=== PATIENT | female | born 1960 | race Caucasian/White ===

== ENCOUNTER 2024-05-03 11:10 | Outpatient (RCR) | payer MEDICARE, SELFPAY ==
[2024-04-12 15:01] LABS: Basophils % (Auto) 1 % (0-2.5); Eosinophils # (Auto) 0.1 Thou/mm3 (0.0-0.5); Eosinophils % (Auto) 3 % (0-10); Hematocrit 33.9 % (36.0-46.0); Hemoglobin 11.1 g/dL (12.0-16.0); Immature Granulocytes % (Auto) 0 % (0-0); Lymphocytes # (Auto) 2.4 Thou/mm3 (1.0-4.8); Lymphocytes % (Auto) 56 % (10-50); Mean Corpuscular HGB Conc 32.7 g/dl (31.0-37.0); Mean Corpuscular Hemoglobin 26.6 pg (25.0-35.0); Mean Corpuscular Volume 81 fL (80-100); Monocytes # (Auto) 0.7 Thou/mm3 (0.0-0.8); Monocytes % (Auto) 15 % (0-12); Neutrophils # (Auto) 1.1 Thou/mm3 (1.8-7.7); Neutrophils % (Auto) 26 % (37-80); Nucleated Red Blood Cell % 0 /100 WBC (0); Platelet Count 209 Thou/mm3 (140-440); RDW Standard Deviation 51.6 fL (36.4-46.3); Red Blood Count 4.18 Miln/mm3 (4.00-5.20); White Blood Count 4.3 Thou/mm3 (3.6-11.0)
[2024-04-12 15:19] LABS: Alanine Aminotransferase 30 U/L (10-49); Albumin, Serum 4.1 gm/dL (3.4-4.8); Albumin/Globulin Ratio 1.6 (1.2-2.2); Alkaline Phosphatase 237 U/L (46-116); Anion Gap 6 (7-16); Aspartate Amino Transferase 27 U/L (0-34); BUN/Creatinine Ratio 20 Ratio (12-20); Bilirubin,Total 0.4 mg/dL (0.3-1.2); Blood Urea Nitrogen 12 mg/dL (9-23); Calcium 9.8 mg/dL (8.3-10.6); Calcium (Corrected) 9.8 mg/dL (8.5-10.1); Carbon Dioxide 25.2 mMol/L (20.0-31.0); Chloride 106 mMol/L (98-107); Creatinine (Component) 0.6 mg/dL (0.6-1.3); Globulin 2.5 gm/dL (2.3-3.5); Glucose 110 mg/dL (74-106); Osmolality,Calculated 274 (275-295); Potassium 3.9 mMol/L (3.4-5.1); Sodium 137 mMol/L (136-145); Total Protein 6.6 gm/dL (5.7-8.2); eGFR > 60 See Note
[2024-04-12 15:22] LABS: Carcinoembryonic Antigen 2.2 ng/mL (0.0-5.0)
[2024-04-13 09:17] LABS: Basophils % (Auto) 0 % (0-2.5); Eosinophils # (Auto) 0.2 Thou/mm3 (0.0-0.5); Eosinophils % (Auto) 2 % (0-10); Hematocrit 33.4 % (36.0-46.0); Hemoglobin 11.2 g/dL (12.0-16.0); Immature Granulocytes % (Auto) 0 % (0-0); Immature Granulocytes Auto 0.04 Thou/mm3 (0.00-0.00); Lymphocytes # (Auto) 2.4 Thou/mm3 (1.0-4.8); Lymphocytes % (Auto) 24 % (10-50); Mean Corpuscular HGB Conc 33.5 g/dl (31.0-37.0); Mean Corpuscular Hemoglobin 27.5 pg (25.0-35.0); Mean Corpuscular Volume 82 fL (80-100); Monocytes % (Auto) 10 % (0-12); Neutrophils # (Auto) 6.2 Thou/mm3 (1.8-7.7); Neutrophils % (Auto) 63 % (37-80); Nucleated Red Blood Cell % 0 /100 WBC (0); Platelet Count 198 Thou/mm3 (140-440); Red Blood Count 4.08 Miln/mm3 (4.00-5.20); White Blood Count 9.8 Thou/mm3 (3.6-11.0)
[2024-04-26 15:11] LABS: Alanine Aminotransferase 31 U/L (10-49); Albumin, Serum 4.2 gm/dL (3.4-4.8); Albumin/Globulin Ratio 1.6 (1.2-2.2); Alkaline Phosphatase 240 U/L (46-116); Anion Gap 7 (7-16); Aspartate Amino Transferase 39 U/L (0-34); BUN/Creatinine Ratio 18 Ratio (12-20); Bilirubin,Total 0.7 mg/dL (0.3-1.2); Blood Urea Nitrogen 11 mg/dL (9-23); Calcium 9.9 mg/dL (8.3-10.6); Calcium (Corrected) 9.9 mg/dL (8.5-10.1); Carbon Dioxide 23.5 mMol/L (20.0-31.0); Chloride 109 mMol/L (98-107); Creatinine (Component) 0.6 mg/dL (0.6-1.3); Globulin 2.6 gm/dL (2.3-3.5); Glucose 108 mg/dL (74-106); Osmolality,Calculated 277 (275-295); Potassium 3.7 mMol/L (3.4-5.1); Sodium 139 mMol/L (136-145); Total Protein 6.8 gm/dL (5.7-8.2); eGFR > 60 See Note
[2024-04-26 15:12] LABS: Basophils % (Auto) 1 % (0-2.5); Carcinoembryonic Antigen 2.4 ng/mL (0.0-5.0); Eosinophils # (Auto) 0.1 Thou/mm3 (0.0-0.5); Eosinophils % (Auto) 2 % (0-10); Hematocrit 35.6 % (36.0-46.0); Hemoglobin 11.8 g/dL (12.0-16.0); Immature Granulocytes % (Auto) 0 % (0-0); Lymphocytes # (Auto) 2.4 Thou/mm3 (1.0-4.8); Lymphocytes % (Auto) 69 % (10-50); Mean Corpuscular HGB Conc 33.1 g/dl (31.0-37.0); Mean Corpuscular Hemoglobin 27.1 pg (25.0-35.0); Mean Corpuscular Volume 82 fL (80-100); Monocytes # (Auto) 0.6 Thou/mm3 (0.0-0.8); Monocytes % (Auto) 16 % (0-12); Neutrophils # (Auto) 0.4 Thou/mm3 (1.8-7.7); Neutrophils % (Auto) 12 % (37-80); Nucleated Red Blood Cell % 0 /100 WBC (0); Platelet Count 182 Thou/mm3 (140-440); RDW Standard Deviation 54.3 fL (36.4-46.3); Red Blood Count 4.35 Miln/mm3 (4.00-5.20); White Blood Count 3.5 Thou/mm3 (3.6-11.0)
[2024-04-27 09:05] LABS: Basophils # (Auto) 0.1 Thou/mm3 (0.0-0.2); Basophils % (Auto) 1 % (0-2.5); Eosinophils # (Auto) 0.1 Thou/mm3 (0.0-0.5); Eosinophils % (Auto) 2 % (0-10); Hematocrit 37.7 % (36.0-46.0); Hemoglobin 12.5 g/dL (12.0-16.0); Immature Granulocytes % (Auto) 0 % (0-0); Immature Granulocytes Auto 0.01 Thou/mm3 (0.00-0.00); Lymphocytes # (Auto) 3.1 Thou/mm3 (1.0-4.8); Lymphocytes % (Auto) 52 % (10-50); Mean Corpuscular HGB Conc 33.2 g/dl (31.0-37.0); Mean Corpuscular Hemoglobin 27.2 pg (25.0-35.0); Mean Corpuscular Volume 82 fL (80-100); Monocytes # (Auto) 1.2 Thou/mm3 (0.0-0.8); Monocytes % (Auto) 20 % (0-12); Neutrophils # (Auto) 1.5 Thou/mm3 (1.8-7.7); Neutrophils % (Auto) 25 % (37-80); Nucleated Red Blood Cell % 0 /100 WBC (0); Platelet Count 194 Thou/mm3 (140-440); RDW Standard Deviation 54.8 fL (36.4-46.3); Red Blood Count 4.59 Miln/mm3 (4.00-5.20)
== END 2024-05-08 23:59 | disposition home or self-care (01) ==
LOC: SCTC 11:10
PROVIDERS: PCP Internal Medicine; Referring Provider Internal Medicine; Visit Provider Internal Medicine Hematology & Oncology
DX: Z51.11 Encounter for antineoplastic chemotherapy (principal); C24.1 Malignant neoplasm of ampulla of Vater
CPT/HCPCS: 36591; 80053; 82378; 85025; 96366; 96367; 96368; 96372; 96411; 96413; 96415; 96416; 99212; A4216; J0640; J1100; J1453; J1642; J2405; J3490; J7060; J9190; J9263; Q5101; G0463

== ENCOUNTER 2024-08-06 08:59 | Outpatient (RCR) | payer MEDICARE, SELFPAY ==
[2024-07-19 15:55] LABS: Basophils % (Auto) 1 % (0-2.5); Eosinophils # (Auto) 0.2 Thou/mm3 (0.0-0.5); Eosinophils % (Auto) 4 % (0-10); Hematocrit 36.7 % (36.0-46.0); Hemoglobin 12.1 g/dL (12.0-16.0); Immature Granulocytes % (Auto) 0 % (0-0); Immature Granulocytes Auto 0.01 Thou/mm3 (0.00-0.00); Lymphocytes # (Auto) 2.7 Thou/mm3 (1.0-4.8); Lymphocytes % (Auto) 42 % (10-50); Mean Corpuscular Hemoglobin 29.2 pg (25.0-35.0); Mean Corpuscular Volume 89 fL (80-100); Monocytes # (Auto) 0.7 Thou/mm3 (0.0-0.8); Monocytes % (Auto) 11 % (0-12); Neutrophils # (Auto) 2.7 Thou/mm3 (1.8-7.7); Neutrophils % (Auto) 42 % (37-80); Nucleated Red Blood Cell % 0 /100 WBC (0); Platelet Count 259 Thou/mm3 (140-440); RDW Standard Deviation 46.2 fL (36.4-46.3); Red Blood Count 4.14 Miln/mm3 (4.00-5.20); White Blood Count 6.4 Thou/mm3 (3.6-11.0)
[2024-07-19 16:19] LABS: Alanine Aminotransferase 80 U/L (10-49); Albumin/Globulin Ratio 1.5 (1.2-2.2); Alkaline Phosphatase 474 U/L (46-116); Anion Gap 8 (7-16); Aspartate Amino Transferase 84 U/L (0-34); BUN/Creatinine Ratio 23 Ratio (12-20); Bilirubin,Total 0.6 mg/dL (0.3-1.2); Blood Urea Nitrogen 14 mg/dL (9-23); Calcium 9.3 mg/dL (8.3-10.6); Calcium (Corrected) 9.3 mg/dL (8.5-10.1); Carbon Dioxide 24.8 mMol/L (20.0-31.0); Chloride 105 mMol/L (98-107); Creatinine (Component) 0.6 mg/dL (0.6-1.3); Globulin 2.6 gm/dL (2.3-3.5); Glucose 97 mg/dL (74-106); Osmolality,Calculated 276 (275-295); Potassium 3.7 mMol/L (3.4-5.1); Sodium 138 mMol/L (136-145); Total Protein 6.6 gm/dL (5.7-8.2); eGFR > 60 See Note
[2024-07-19 16:21] LABS: Carcinoembryonic Antigen < 0.5 ng/mL (0.0-5.0)
--- NOTE | 2024-07-20 13:23 | CTCFLWUP_ITS ---
Patient: BRITTA JETER : 1960 Page 2 of 2 FOLLOW UP NOTE DATE OF SERVICE: 07/20/2024 NAME: BRITTA JETER ACCOUNT: [id number] : 1960 AGE: 64 INTERVAL HISTORY: Doing well since surgery. 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 12/30/2023 - 01/07/2024: Ms. Jeter was admitted to [facility] for obstructive jaundice. 726 patient had percutaneous transhepatic biliary drain. It further CT scan showed large duodenal/ampullary mass with peripancreatic lymphadenopathy. She was discharged home. She was readmitted to the hospital following day for seizure-like activity and was found to have hyponatremia. She eventually recovered. During the hospital stay Ms. Jeter was seen by Dr. Willson, hepatobiliary surgeon who felt she is unresectable at that time and recommended neoadjuvant chemotherapy. During the hospital stay she also had biliary stent placed. She received 1 cycle of modified FOLFOX chemotherapy on 01/18/2024. She was discharged home and referred to our clinic for further care. 01/03/2024: CT scan of the abdomen and pelvis with and without contrast 01/18/2024: Patient received 1 cycle of modified FOLFOX 6. 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 Centrum Minis Women 50 Plus - 4 mg iron-200 mcg-25 mcg 1 tab Daily 2. cyanocobalamin (vitamin B-12) - 1,000 mcg 1 tab Daily 3. Dulcolax (bisacodyl) - 5 mg 1 Capsule Daily 4. ferrous sulfate - 325 mg (65 mg iron) 1 tab Every other day 5. folic acid - 1 mg 1 tab Daily 6. Keppra - 500 mg 1 tab Every 12 Hours 7. Vitamin D2 - 1,250 mcg (50,000 unit) 1 Capsule Weekly 8. Xanax - 0.25 mg 1 tab Twice a Day Medications Last Reconciled by Filomena Hope MA on 07/20/2024 ALLERGIES: No Known Drug Allergies REVIEW OF SYSTEMS: A complete 14-point review of systems was performed and is negative except as noted in interval history. PHYSICAL EXAMINATION: VITAL SIGNS: Temperature?98.2, B/P?127/81, Oxygen?Saturation?98% Weight?160?lbs (Change?since?07/19/24:?1.4?lbs) PAIN: 0 - No pain ECOG Performance Status: 0 - Asymptomatic and fully active GENERAL APPEARANCE: Appears well, in no apparent distress, appropriately interactive. HEENT: Normocephalic, no temporal wasting, normal conjunctiva, no scleral icterus, normal hearing, lips without lesions, neck normal range of motion. CARDIOVASCULAR: Not assessed. PULMONARY: Normal respiratory effort, no respiratory distress or use of accessory muscles, speaking in full sentences, no tachypnea. EXTREMITIES: No pedal edema or cyanosis. SKIN: Normal skin appearance. NEUROLOGIC: Alert and oriented x4. PSHYCHIATRIC: Appropriate affect, mood normal, behavior normal, intact thought and speech. 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 S/p 1 cycle of FOLFOX chemotherapy in [place] (01/18/2024) and followed by 7 more here continue modified FOLFOX chemotherapy. Patient patient have completed surgery\and all margins were negative\ Patient noted to have transaminitis Will get MRI liver with and without contrast Advised not to take alcohol or Tylenol RTC in 1 week for review of labs and to start chemotherapy Resume chemotherapy Will monitor with a CBC CMP CA 19-9. Ca 19-9 is normal Will order imaging to see response to therapy RTC in 6 weeksMainstay of therapy for this kind of cancer is surgery. Neoadjuvant systemic therapy can be considered, particularly in patients at high risk, with or without subsequent chemoradiation. High-risk features include imaging findings, markedly elevated CA 19-9, markedly elevated CEA, large primary tumors, large regional lymph nodes, excessive weight loss, and extreme pain. There is limited evidence to recommend specific neoadjuvant regimens off-study, and practices vary with regard to the use of chemotherapy and chemoradiation. After neoadjuvant therapy and stent placement, pancreatic protocol CT or MRI is recommended, followed by surgery in case of resectable disease. Unresectable disease should be managed with the same systemic therapy regimens as metastatic disease. All resected ampullary cancers can receive postoperative adjuvant treatment. The initiation of adjuvant systemic therapy is recommended within 12 weeks of surgery if the patient is medically fit. The optimal duration of treatment is 4 to 6 months. The NCCN recommendations for each disease stage are as follows: (1) stage I disease, systemic therapy or observation; (2) stage II disease, systemic therapy with or without chemoradiation or observation; and (3) stage III disease, systemic therapy with or without chemoradiation. After adjuvant therapy, patients should undergo surveillance every 3 to 6 months for 2 years, then every 6 to 12 months for up to 5 years or as clinically indicated. During surveillance, history and physical examination should take place, as should chest CT and CT or MRI of the abdomen and pelvis with contrast. CEA and/or CA 19-9 levels should also be measured. The NCCN-recommended neoadjuvant therapy options for pancreatobiliary/mixed-type ampullary cancer include FOLFIRINOX/modified FOLFIRINOX (mFOLFIRINOX), gemcitabine + cisplatin, gemcitabine + capecitabine, and gemcitabine + albumin- bound paclitaxel. The NCCN-recommended neoadjuvant therapy options for i ntestinal type ampullary cancer include FOLFOXIRI, FOLFOX, and capecitabine + oxaliplatin (CapeOx). All of these regimens can be potentially followed by chemoradiation based on multidisciplinary tumor board recommendation. For pancreatobiliary/mixed type ampullary cancer, the recommendations for FOLFIRINOX/mFOLFIRINOX, gemcitabine + cisplatin, and gemcitabine + albumin-bound paclitaxel are derived from the NCCN Guidelines for Pancreatic Adenocarcinoma and NCCN Guidelines for Biliary Tract Cancers, with the addition of gemcitabine + capecitabine based on panel members? clinical experience. It should be noted that there are no prospective randomized phase III data supporting these recommendations. The available evidence is derived from prospective phase II or randomized phase II studies as well as from retrospective studies. 126? 131 For more information on these studies, see the discussion sections of the NCCN Guidelines for Pancreatic Adenocarcinoma and the NCCN Guidelines for Biliary Tract Cancers (available at NCCN.org). For intestinal type ampullary cancer, all 3 recommendations are derived from the NCCN Guidelines for Colon Cancer and the NCCN Guidelines for Small Bowel Adenocarcinoma. These recommendations are based on high-level evidence, phase III randomized data from the neoadjuvant FOxTROT trial (FOLFOX, CapeOx) in localized colon cancer, 132 data from the TETLIN and TRIBE2 trials (FOLFOXIRI) for metastatic disease, and data from one phase II study with neoadjuvant FOLFOXIRI for localized colon cancer. 133?135 For more information on these studies, see the discussion section of the NCCN Guidelines for Colon Cancer I reviewed the patient's chart and the patient is already on chemotherapy with FOLFOX. I we will proceed with the treatment and try to get full pathology review for her. I will also wait on the [facility] consult for surgery. MRI liver as have transaminitis RETURN TO CLINIC: 1 week to review labs BILLING AND COMPLIANCE: I reviewed external records from providers outside my specialty as summarized above. I spent a total of 50 minutes on this patient?s care on the day of their visit excluding time spent related to any billed procedures. This time includes time spent with the patient as well as time spent documenting in the medical record, reviewing patients records and tests, obtaining history, placing orders, communicating with other healthcare professionals, counseling the patient, family or caregiver, and/or care coordination for the diagnoses above. Electronically Signed by: Srini Sr MD T: 1:21 PM CC: Low?Radhames,? PCP: Low Ricci Referring: Low Ricci This document was completed utilizing speech recognition software. Grammatical errors, random word insertions, pronoun errors, and incomplete sentences are an occasional consequence of this system due to software limitations, ambient noise, and hardware issues. Any formal questions or concerns about the content, text or information contained within the body of this dictation should be directly addressed to the provider for clarification.
[2024-07-27 06:53] LABS: CA 19-9 Antigen* 23 U/mL (<34)
[2024-07-27 14:30] LABS: Basophils % (Auto) 1 % (0-2.5); Eosinophils # (Auto) 0.2 Thou/mm3 (0.0-0.5); Eosinophils % (Auto) 3 % (0-10); Hematocrit 38.7 % (36.0-46.0); Hemoglobin 13.2 g/dL (12.0-16.0); Immature Granulocytes % (Auto) 0 % (0-0); Lymphocytes # (Auto) 2.6 Thou/mm3 (1.0-4.8); Lymphocytes % (Auto) 44 % (10-50); Mean Corpuscular HGB Conc 34.1 g/dl (31.0-37.0); Mean Corpuscular Hemoglobin 29.8 pg (25.0-35.0); Mean Corpuscular Volume 87 fL (80-100); Monocytes # (Auto) 0.6 Thou/mm3 (0.0-0.8); Monocytes % (Auto) 10 % (0-12); Neutrophils # (Auto) 2.6 Thou/mm3 (1.8-7.7); Neutrophils % (Auto) 43 % (37-80); Nucleated Red Blood Cell % 0 /100 WBC (0); Platelet Count 255 Thou/mm3 (140-440); RDW Standard Deviation 42.9 fL (36.4-46.3); Red Blood Count 4.43 Miln/mm3 (4.00-5.20)
[2024-07-27 14:46] LABS: Alanine Aminotransferase 86 U/L (10-49); Albumin, Serum 4.3 gm/dL (3.4-4.8); Albumin/Globulin Ratio 1.6 (1.2-2.2); Alkaline Phosphatase 497 U/L (46-116); Anion Gap 9 (7-16); Aspartate Amino Transferase 96 U/L (0-34); BUN/Creatinine Ratio 18 Ratio (12-20); Bilirubin,Total 0.5 mg/dL (0.3-1.2); Blood Urea Nitrogen 11 mg/dL (9-23); Calcium 9.8 mg/dL (8.3-10.6); Calcium (Corrected) 9.8 mg/dL (8.5-10.1); Carbon Dioxide 25.2 mMol/L (20.0-31.0); Chloride 103 mMol/L (98-107); Creatinine (Component) 0.6 mg/dL (0.6-1.3); Globulin 2.7 gm/dL (2.3-3.5); Glucose 119 mg/dL (74-106); Osmolality,Calculated 274 (275-295); Potassium 4.1 mMol/L (3.4-5.1); Sodium 137 mMol/L (136-145); eGFR > 60 See Note
[2024-07-28 11:03] LABS: Hepatitis A Antibody IgM Non Reactive (Non React); Hepatitis B Core Antibody IgM Non Reactive (Non React); Hepatitis B Surface Antigen Non Reactive (Non React); Hepatitis C Antibody Non Reactive (Non React)
[2024-07-29 10:13] LABS: Alanine Aminotransferase 82 U/L (10-49); Albumin, Serum 4.2 gm/dL (3.4-4.8); Albumin/Globulin Ratio 1.6 (1.2-2.2); Alkaline Phosphatase 473 U/L (46-116); Anion Gap 7 (7-16); Aspartate Amino Transferase 87 U/L (0-34); BUN/Creatinine Ratio 17 Ratio (12-20); Bilirubin,Total 0.6 mg/dL (0.3-1.2); Blood Urea Nitrogen 10 mg/dL (9-23); Calcium 9.8 mg/dL (8.3-10.6); Calcium (Corrected) 9.8 mg/dL (8.5-10.1); Carbon Dioxide 26.8 mMol/L (20.0-31.0); Chloride 104 mMol/L (98-107); Creatinine (Component) 0.6 mg/dL (0.6-1.3); Globulin 2.7 gm/dL (2.3-3.5); Glucose 101 mg/dL (74-106); Osmolality,Calculated 274 (275-295); Potassium 3.9 mMol/L (3.4-5.1); Sodium 138 mMol/L (136-145); Total Protein 6.9 gm/dL (5.7-8.2); eGFR > 60 See Note
[2024-07-29 12:52] LABS: Misc Send Out* See Sep Rpt
[2024-08-02 06:55] LABS: CA 19-9 Antigen* 15 U/mL (<34)
[2024-08-03 14:32] LABS: Basophils % (Auto) 1 % (0-2.5); Eosinophils # (Auto) 0.2 Thou/mm3 (0.0-0.5); Eosinophils % (Auto) 3 % (0-10); Hematocrit 37.6 % (36.0-46.0); Hemoglobin 12.8 g/dL (12.0-16.0); Immature Granulocytes % (Auto) 0 % (0-0); Immature Granulocytes Auto 0.01 Thou/mm3 (0.00-0.00); Lymphocytes # (Auto) 2.7 Thou/mm3 (1.0-4.8); Lymphocytes % (Auto) 42 % (10-50); Mean Corpuscular Hemoglobin 29.6 pg (25.0-35.0); Mean Corpuscular Volume 87 fL (80-100); Monocytes # (Auto) 0.6 Thou/mm3 (0.0-0.8); Monocytes % (Auto) 9 % (0-12); Neutrophils # (Auto) 2.8 Thou/mm3 (1.8-7.7); Neutrophils % (Auto) 45 % (37-80); Nucleated Red Blood Cell % 0 /100 WBC (0); Platelet Count 261 Thou/mm3 (140-440); RDW Standard Deviation 41.9 fL (36.4-46.3); Red Blood Count 4.33 Miln/mm3 (4.00-5.20); White Blood Count 6.3 Thou/mm3 (3.6-11.0)
[2024-08-03 14:49] LABS: Alanine Aminotransferase 60 U/L (10-49); Albumin, Serum 4.4 gm/dL (3.4-4.8); Albumin/Globulin Ratio 1.7 (1.2-2.2); Alkaline Phosphatase 407 U/L (46-116); Anion Gap 7 (7-16); Aspartate Amino Transferase 73 U/L (0-34); BUN/Creatinine Ratio 22 Ratio (12-20); Bilirubin,Total 0.5 mg/dL (0.3-1.2); Blood Urea Nitrogen 13 mg/dL (9-23); Carbon Dioxide 27.8 mMol/L (20.0-31.0); Chloride 105 mMol/L (98-107); Creatinine (Component) 0.6 mg/dL (0.6-1.3); Globulin 2.6 gm/dL (2.3-3.5); Glucose 95 mg/dL (74-106); Osmolality,Calculated 279 (275-295); Potassium 3.8 mMol/L (3.4-5.1); Sodium 140 mMol/L (136-145); eGFR > 60 See Note
== END 2024-08-06 23:59 | disposition home or self-care (01) ==
LOC: SCTC 08:59
PROVIDERS: PCP Internal Medicine; Referring Provider Internal Medicine; Visit Provider Internal Medicine Hematology & Oncology
DX: Z51.11 Encounter for antineoplastic chemotherapy (principal); C24.1 Malignant neoplasm of ampulla of Vater
CPT/HCPCS: 36591; 80053; 80074; 82378; 85025; 86301; 96360; 96366; 96367; 96368; 96411; 96413; 96415; 96416; 99212; A4216; J0640; J1100; J1453; J1642; J2405; J7030; J7050; J9190; J9263; G0463

== ENCOUNTER → 2024-08-12 | Outpatient (CLI) | payer MEDICARE, SELFPAY ==
--- NOTE | 2024-08-12 09:00 | XR_ITS ---
Examination: MRI abdomen with intravenous contrast. MRI abdomen without intravenous contrast. Date and time of exam: August 12, 2024 0913 hours Comparison PET/CT scan 02/26/2024, MRI abdomen December 12, 2023 INDICATIONS: Diagnosis intrahepatic bile duct carcinoma diagnosed in December 2023, cholecystectomy May 2024 Technique: Multiple axial, sagittal and coronal sections of the abdomen obtained. Transverse images, TR 6020, TE 107. T1 weighted transverse images, TR 582, TE 9.5. T2-weighted sagittal images, TR 4000, TE 105. T2-weighted sagittal images, TR 4000, TE 5. Coronal images, TR 4210, TE 107. Axial and coronal images are obtained post 19 cc intravenous injection, gadolinium. Findings: No current extrahepatic biliary tract dilatation No enhancing liver or splenic lesions Signal deficit in distribution of the common hepatic common bile duct which may relate to the patient's biliary stent On this study no pancreatic mass is noted, pancreatic duct is not dilated No peripancreatic edema Spleen is not enlarged No ascites 2 mm 4 mm lateral periaortic lymph nodes which are stable compared to the PET CT scan 02/26/2024 IMPRESSION: No current extrahepatic biliary tract dilatation No interval hepatic metastases Stable subcentimeter periaortic lymph nodes compared to the PET CT scan 02/26/2024 No interval ascites
== END | disposition home or self-care (01) ==
PROVIDERS: PCP Internal Medicine; Referring Provider Internal Medicine Hematology & Oncology; Visit Provider Internal Medicine Hematology & Oncology
DX: C22.1 Intrahepatic bile duct carcinoma (principal)
CPT/HCPCS: 74183; A9579

== ENCOUNTER → 2024-08-13 | Outpatient (CLI) | payer MEDICARE, SELFPAY ==
--- NOTE | 2024-08-13 16:00 | XR_ITS ---
Examination: CT chest with intravenous contrast CT abdomen with intravenous contrast CT pelvis with intravenous contrast 2-D coronal and sagittal reconstructions Time of exam: August 23, 2024 1002 hours COMPARISON: PET CT scan 02/26/2024, MRI abdomen December 12, 2023, CT abdomen pelvis November 19, 2023 INDICATIONS: Diagnosis liver cancer, biliary stent satisfactory position with weakly hypermetabolic pancreatic head and non hypermetabolic 2 to 4 mm periaortic lymph nodes on PET CT scan 02/26/2024, history Whipple surgery April 2023, undergoing chemotherapy CTDI: vol (mGy) : 17.07 DLP: (mGycm): 644 Technique: Multiple axial images of the chest, abdomen and pelvis with intravenous contrast, 3.0 mm slice thickness. Images obtained post intravenous injection Isovue 370 60 cc. 2-D sagittal and coronal reconstructions. Low dose protocols were performed. One or more of the following dose reduction techniques were used; automated exposure control, adjustment of the mA and/or KV according to patient size, use of iterative reconstruction technique. Findings: No thoracic aortic aneurysmal dilatation Mild calcification left main left anterior descending coronary arteries Pulmonary artery segments are not enlarged No paratracheal tracheobronchial or bronchopulmonary adenopathy No pneumonia, pulmonary edema, pleural disease or pulmonary nodules Pneumobilia, no focal liver lesions Absent gallbladder No current biliary stent Edema involving the duodenal bulb and duodenal sweep Surgical clips at the pancreatic head Body and tail of the pancreas are not enlarged small preaortic precaval lymph nodes are stable in appearance compared to PET CT scan August 26, 2023 No bowel obstruction Normal appendix No pelvic mass Contracted urinary bladder Prominent osteopenia with advanced disc narrowing L4-L5 IMPRESSION: No mediastinal lymphadenopathy No pneumonia, pulmonary edema, pleural disease or pulmonary nodules Stable small preaortic precaval lymph nodes compared to PET CT scan August 26, 2023 Active peptic disease duodenum
== END | disposition home or self-care (01) ==
LOC: CCTX 09:32
PROVIDERS: PCP Internal Medicine; Referring Provider Internal Medicine Hematology & Oncology; Visit Provider Internal Medicine Hematology & Oncology
DX: K30 Functional dyspepsia (principal); C22.1 Intrahepatic bile duct carcinoma
CPT/HCPCS: 71260; 74177; A4649; Q9967

== ENCOUNTER → 2024-08-25 | Outpatient (CLI) | payer MEDICARE, SELFPAY ==
--- NOTE | 2024-08-25 08:06 | XR_ITS ---
MRI abdomen, without contrast. MRCP Date and time of exam: August 25, 2024 0832 hours Comparison August 12, 2024 INDICATIONS: Cholecystectomy May 2024 cancer diagnosis of December 2023 Technique: Multiple axial and coronal images of the abdomen have been obtained with the Siemens 1.5T MRI scanner. Images obtained included T1 weighted transverse images, T2-weighted transverse images, T2-weighted transverse images fat-suppressed, T2 weighted haste fat suppressed transverse images, T1 weighted images, in and out of phase images, T2-weighted coronal images, breath hold, T2 weighted haze coronal images as well as T2 weighted coronal thick slab images, MRCP. Findings: Images are degraded by patient motion Absent gallbladder Enlarged common bile duct 7 mm No pancreatic mass Spleen not enlarged Trace free fluid in the abdomen No hydronephrosis IMPRESSION: Images are significantly degraded by patient motion Recommend repeating this study preceded by intravenous IV conscious sedation
== END | disposition home or self-care (01) ==
PROVIDERS: Referring Provider Internal Medicine Hematology & Oncology; Visit Provider Internal Medicine Hematology & Oncology
DX: Z90.49 Acquired absence of other specified parts of digestive tract (principal); C22.1 Intrahepatic bile duct carcinoma
CPT/HCPCS: S8037; 74181

== ENCOUNTER 2024-09-06 14:40 | Outpatient (RCR) | payer MEDICARE, SELFPAY ==
[2024-08-17 16:13] LABS: Basophils % (Auto) 1 % (0-2.5); Eosinophils # (Auto) 0.2 Thou/mm3 (0.0-0.5); Eosinophils % (Auto) 3 % (0-10); Hematocrit 36.7 % (36.0-46.0); Hemoglobin 12.3 g/dL (12.0-16.0); Immature Granulocytes % (Auto) 0 % (0-0); Immature Granulocytes Auto 0.01 Thou/mm3 (0.00-0.00); Lymphocytes # (Auto) 2.2 Thou/mm3 (1.0-4.8); Lymphocytes % (Auto) 51 % (10-50); Mean Corpuscular HGB Conc 33.5 g/dl (31.0-37.0); Mean Corpuscular Hemoglobin 29.4 pg (25.0-35.0); Mean Corpuscular Volume 88 fL (80-100); Monocytes # (Auto) 0.5 Thou/mm3 (0.0-0.8); Monocytes % (Auto) 12 % (0-12); Neutrophils # (Auto) 1.4 Thou/mm3 (1.8-7.7); Neutrophils % (Auto) 33 % (37-80); Nucleated Red Blood Cell % 0 /100 WBC (0); Platelet Count 194 Thou/mm3 (140-440); RDW Standard Deviation 41.7 fL (36.4-46.3); Red Blood Count 4.18 Miln/mm3 (4.00-5.20); White Blood Count 4.4 Thou/mm3 (3.6-11.0)
[2024-08-17 16:29] LABS: Alanine Aminotransferase 48 U/L (10-49); Albumin/Globulin Ratio 1.5 (1.2-2.2); Alkaline Phosphatase 316 U/L (46-116); Anion Gap 6 (7-16); Aspartate Amino Transferase 65 U/L (0-34); BUN/Creatinine Ratio 18 Ratio (12-20); Bilirubin,Total 0.4 mg/dL (0.3-1.2); Blood Urea Nitrogen 11 mg/dL (9-23); Calcium 9.4 mg/dL (8.3-10.6); Calcium (Corrected) 9.4 mg/dL (8.5-10.1); Chloride 106 mMol/L (98-107); Creatinine (Component) 0.6 mg/dL (0.6-1.3); Globulin 2.6 gm/dL (2.3-3.5); Glucose 112 mg/dL (74-106); Osmolality,Calculated 276 (275-295); Potassium 3.7 mMol/L (3.4-5.1); Sodium 138 mMol/L (136-145); Total Protein 6.6 gm/dL (5.7-8.2); eGFR > 60 See Note
[2024-08-17 16:42] LABS: Carcinoembryonic Antigen 0.8 ng/mL (0.0-5.0)
[2024-08-31 15:58] LABS: Basophils # (Auto) 0.1 Thou/mm3 (0.0-0.2); Basophils % (Auto) 1 % (0-2.5); Eosinophils # (Auto) 0.1 Thou/mm3 (0.0-0.5); Eosinophils % (Auto) 2 % (0-10); Hematocrit 38.3 % (36.0-46.0); Hemoglobin 13.2 g/dL (12.0-16.0); Immature Granulocytes % (Auto) 5 % (0-0); Immature Granulocytes Auto 0.25 Thou/mm3 (0.00-0.00); Lymphocytes # (Auto) 2.9 Thou/mm3 (1.0-4.8); Lymphocytes % (Auto) 57 % (10-50); Mean Corpuscular HGB Conc 34.5 g/dl (31.0-37.0); Mean Corpuscular Hemoglobin 29.2 pg (25.0-35.0); Mean Corpuscular Volume 85 fL (80-100); Monocytes % (Auto) 19 % (0-12); Neutrophils # (Auto) 0.8 Thou/mm3 (1.8-7.7); Neutrophils % (Auto) 16 % (37-80); Nucleated Red Blood Cell # 0.02 Thou/mm3 (0.00-0.00); Nucleated Red Blood Cell % 0 /100 WBC (0); Platelet Count 173 Thou/mm3 (140-440); RDW Standard Deviation 41.1 fL (36.4-46.3); Red Blood Count 4.52 Miln/mm3 (4.00-5.20)
[2024-08-31 16:15] LABS: Alanine Aminotransferase 66 U/L (10-49); Albumin, Serum 4.2 gm/dL (3.4-4.8); Albumin/Globulin Ratio 1.6 (1.2-2.2); Alkaline Phosphatase 366 U/L (46-116); Anion Gap 9 (7-16); Aspartate Amino Transferase 83 U/L (0-34); BUN/Creatinine Ratio 19 Ratio (12-20); Bilirubin,Total 0.4 mg/dL (0.3-1.2); Blood Urea Nitrogen 13 mg/dL (9-23); Carbon Dioxide 25.4 mMol/L (20.0-31.0); Chloride 105 mMol/L (98-107); Creatinine (Component) 0.7 mg/dL (0.6-1.3); Globulin 2.7 gm/dL (2.3-3.5); Glucose 106 mg/dL (74-106); Osmolality,Calculated 277 (275-295); Potassium 4.1 mMol/L (3.4-5.1); Sodium 139 mMol/L (136-145); Total Protein 6.9 gm/dL (5.7-8.2); eGFR > 60 See Note
[2024-08-31 16:29] LABS: Carcinoembryonic Antigen 1.5 ng/mL (0.0-5.0)
[2024-09-06 17:31] LABS: Basophils # (Auto) 0.1 Thou/mm3 (0.0-0.2); Basophils % (Auto) 1 % (0-2.5); Eosinophils % (Auto) 0 % (0-10); Hematocrit 37.9 % (36.0-46.0); Hemoglobin 12.8 g/dL (12.0-16.0); Immature Granulocytes % (Auto) 9 % (0-0); Immature Granulocytes Auto 0.94 Thou/mm3 (0.00-0.00); Lymphocytes # (Auto) 3.2 Thou/mm3 (1.0-4.8); Lymphocytes % (Auto) 30 % (10-50); Mean Corpuscular HGB Conc 33.8 g/dl (31.0-37.0); Mean Corpuscular Hemoglobin 29.4 pg (25.0-35.0); Mean Corpuscular Volume 87 fL (80-100); Monocytes # (Auto) 1.9 Thou/mm3 (0.0-0.8); Monocytes % (Auto) 18 % (0-12); Neutrophils # (Auto) 4.5 Thou/mm3 (1.8-7.7); Neutrophils % (Auto) 42 % (37-80); Nucleated Red Blood Cell % 0 /100 WBC (0); Platelet Count 178 Thou/mm3 (140-440); RDW Standard Deviation 45.4 fL (36.4-46.3); Red Blood Count 4.35 Miln/mm3 (4.00-5.20); White Blood Count 10.6 Thou/mm3 (3.6-11.0)
[2024-09-06 17:39] LABS: Alanine Aminotransferase 72 U/L (10-49); Albumin, Serum 3.8 gm/dL (3.4-4.8); Albumin/Globulin Ratio 1.4 (1.2-2.2); Alkaline Phosphatase 489 U/L (46-116); Anion Gap 9 (7-16); Aspartate Amino Transferase 99 U/L (0-34); BUN/Creatinine Ratio 16 Ratio (12-20); Bilirubin,Total 0.4 mg/dL (0.3-1.2); Blood Urea Nitrogen 13 mg/dL (9-23); Calcium (Corrected) 9.2 mg/dL (8.5-10.1); Carbon Dioxide 25.2 mMol/L (20.0-31.0); Chloride 107 mMol/L (98-107); Creatinine (Component) 0.8 mg/dL (0.6-1.3); Globulin 2.7 gm/dL (2.3-3.5); Glucose 101 mg/dL (74-106); Osmolality,Calculated 281 (275-295); Potassium 3.8 mMol/L (3.4-5.1); Sodium 141 mMol/L (136-145); Total Protein 6.5 gm/dL (5.7-8.2); eGFR > 60 See Note
[2024-09-06 22:48] LABS: Path Review Blood Smear Sent to Pathologist
== END 2024-09-06 23:59 | disposition home or self-care (01) ==
LOC: SCTC 14:40
PROVIDERS: PCP Internal Medicine; Referring Provider Internal Medicine; Visit Provider Internal Medicine Hematology & Oncology
DX: Z51.11 Encounter for antineoplastic chemotherapy (principal); C24.1 Malignant neoplasm of ampulla of Vater; R74.01 Elevation of levels of liver transaminase levels
CPT/HCPCS: 36591; 80053; 82378; 85025; 96366; 96367; 96368; 96372; 96411; 96413; 96415; 96416; A4216; J0640; J1100; J1453; J1642; J2405; J7050; J7060; J9190; J9263; Q5101

== ENCOUNTER 2024-10-05 07:56 | Outpatient (RCR) | payer MEDICARE, SELFPAY ==
[2024-09-20 14:49] LABS: Basophils % (Auto) 1 % (0-2.5); Eosinophils # (Auto) 0.1 Thou/mm3 (0.0-0.5); Eosinophils % (Auto) 3 % (0-10); Hematocrit 34.1 % (36.0-46.0); Hemoglobin 11.8 g/dL (12.0-16.0); Immature Granulocytes % (Auto) 1 % (0-0); Immature Granulocytes Auto 0.02 Thou/mm3 (0.00-0.00); Lymphocytes % (Auto) 48 % (10-50); Mean Corpuscular HGB Conc 34.6 g/dl (31.0-37.0); Mean Corpuscular Hemoglobin 29.9 pg (25.0-35.0); Mean Corpuscular Volume 86 fL (80-100); Monocytes # (Auto) 0.7 Thou/mm3 (0.0-0.8); Monocytes % (Auto) 16 % (0-12); Neutrophils # (Auto) 1.3 Thou/mm3 (1.8-7.7); Neutrophils % (Auto) 31 % (37-80); Nucleated Red Blood Cell % 0 /100 WBC (0); Platelet Count 211 Thou/mm3 (140-440); RDW Standard Deviation 48.2 fL (36.4-46.3); Red Blood Count 3.95 Miln/mm3 (4.00-5.20); White Blood Count 4.2 Thou/mm3 (3.6-11.0)
[2024-09-20 15:06] LABS: Alanine Aminotransferase 50 U/L (10-49); Albumin, Serum 4.2 gm/dL (3.4-4.8); Albumin/Globulin Ratio 1.9 (1.2-2.2); Alkaline Phosphatase 384 U/L (46-116); Anion Gap 7 (7-16); Aspartate Amino Transferase 52 U/L (0-34); BUN/Creatinine Ratio 21 Ratio (12-20); Bilirubin,Total 0.6 mg/dL (0.3-1.2); Blood Urea Nitrogen 15 mg/dL (9-23); Calcium 9.1 mg/dL (8.3-10.6); Calcium (Corrected) 9.1 mg/dL (8.5-10.1); Carbon Dioxide 24.1 mMol/L (20.0-31.0); Chloride 109 mMol/L (98-107); Creatinine (Component) 0.7 mg/dL (0.6-1.3); Globulin 2.2 gm/dL (2.3-3.5); Glucose 126 mg/dL (74-106); Osmolality,Calculated 282 (275-295); Potassium 4.2 mMol/L (3.4-5.1); Sodium 140 mMol/L (136-145); Total Protein 6.4 gm/dL (5.7-8.2); eGFR > 60 See Note
[2024-09-21 08:37] LABS: Basophils # (Auto) 0.1 Thou/mm3 (0.0-0.2); Basophils % (Auto) 1 % (0-2.5); Eosinophils # (Auto) 0.2 Thou/mm3 (0.0-0.5); Eosinophils % (Auto) 1 % (0-10); Hematocrit 35.9 % (36.0-46.0); Hemoglobin 12.2 g/dL (12.0-16.0); Immature Granulocytes % (Auto) 1 % (0-0); Immature Granulocytes Auto 0.15 Thou/mm3 (0.00-0.00); Lymphocytes # (Auto) 2.8 Thou/mm3 (1.0-4.8); Lymphocytes % (Auto) 13 % (10-50); Mean Corpuscular Hemoglobin 29.5 pg (25.0-35.0); Mean Corpuscular Volume 87 fL (80-100); Monocytes # (Auto) 1.5 Thou/mm3 (0.0-0.8); Monocytes % (Auto) 7 % (0-12); Neutrophils # (Auto) 16.3 Thou/mm3 (1.8-7.7); Neutrophils % (Auto) 77 % (37-80); Nucleated Red Blood Cell % 0 /100 WBC (0); Platelet Count 234 Thou/mm3 (140-440); RDW Standard Deviation 49.3 fL (36.4-46.3); Red Blood Count 4.14 Miln/mm3 (4.00-5.20); White Blood Count 21.1 Thou/mm3 (3.6-11.0)
[2024-10-04 13:42] LABS: Basophils % (Auto) 1 % (0-2.5); Eosinophils # (Auto) 0.2 Thou/mm3 (0.0-0.5); Eosinophils % (Auto) 3 % (0-10); Hematocrit 37.4 % (36.0-46.0); Hemoglobin 12.9 g/dL (12.0-16.0); Immature Granulocytes % (Auto) 1 % (0-0); Immature Granulocytes Auto 0.06 Thou/mm3 (0.00-0.00); Lymphocytes # (Auto) 2.5 Thou/mm3 (1.0-4.8); Lymphocytes % (Auto) 44 % (10-50); Mean Corpuscular HGB Conc 34.5 g/dl (31.0-37.0); Mean Corpuscular Hemoglobin 30.1 pg (25.0-35.0); Mean Corpuscular Volume 87 fL (80-100); Monocytes % (Auto) 18 % (0-12); Neutrophils # (Auto) 1.9 Thou/mm3 (1.8-7.7); Neutrophils % (Auto) 34 % (37-80); Nucleated Red Blood Cell % 0 /100 WBC (0); Platelet Count 190 Thou/mm3 (140-440); RDW Standard Deviation 49.7 fL (36.4-46.3); Red Blood Count 4.29 Miln/mm3 (4.00-5.20); White Blood Count 5.7 Thou/mm3 (3.6-11.0)
[2024-10-04 14:01] LABS: Alanine Aminotransferase 68 U/L (10-49); Albumin, Serum 4.3 gm/dL (3.4-4.8); Albumin/Globulin Ratio 1.7 (1.2-2.2); Alkaline Phosphatase 427 U/L (46-116); Anion Gap 6 (7-16); Aspartate Amino Transferase 82 U/L (0-34); BUN/Creatinine Ratio 19 Ratio (12-20); Bilirubin,Total 0.4 mg/dL (0.3-1.2); Blood Urea Nitrogen 13 mg/dL (9-23); Calcium 9.3 mg/dL (8.3-10.6); Calcium (Corrected) 9.3 mg/dL (8.5-10.1); Carbon Dioxide 26.4 mMol/L (20.0-31.0); Chloride 104 mMol/L (98-107); Creatinine (Component) 0.7 mg/dL (0.6-1.3); Globulin 2.6 gm/dL (2.3-3.5); Glucose 110 mg/dL (74-106); Osmolality,Calculated 273 (275-295); Potassium 4.1 mMol/L (3.4-5.1); Sodium 136 mMol/L (136-145); Total Protein 6.9 gm/dL (5.7-8.2); eGFR > 60 See Note
[2024-10-04 14:04] LABS: Carcinoembryonic Antigen 1.4 ng/mL (0.0-5.0)
== END 2024-10-06 23:59 | disposition home or self-care (01) ==
LOC: SCTC 07:56
PROVIDERS: Referring Provider Internal Medicine Hematology & Oncology; Visit Provider Internal Medicine Hematology & Oncology
DX: Z51.11 Encounter for antineoplastic chemotherapy (principal); C24.1 Malignant neoplasm of ampulla of Vater; R74.01 Elevation of levels of liver transaminase levels
CPT/HCPCS: 36591; 80053; 82378; 85025; 96367; 96368; 96372; 96375; 96413; 96415; 96416; A4216; J0640; J1100; J1453; J1642; J2405; J7050; J7060; J9190; J9263; Q5101

== ENCOUNTER 2024-11-03 13:23 | Outpatient (RCR) | payer MEDICARE, SELFPAY ==
[2024-11-02 10:21] LABS: Basophils # (Auto) 0.1 Thou/mm3 (0.0-0.2); Basophils % (Auto) 1 % (0-2.5); Eosinophils # (Auto) 0.1 Thou/mm3 (0.0-0.5); Eosinophils % (Auto) 2 % (0-10); Hematocrit 36.3 % (36.0-46.0); Hemoglobin 12.6 g/dL (12.0-16.0); Immature Granulocytes % (Auto) 0 % (0-0); Immature Granulocytes Auto 0.02 Thou/mm3 (0.00-0.00); Lymphocytes # (Auto) 2.2 Thou/mm3 (1.0-4.8); Lymphocytes % (Auto) 36 % (10-50); Mean Corpuscular HGB Conc 34.7 g/dl (31.0-37.0); Mean Corpuscular Hemoglobin 30.4 pg (25.0-35.0); Mean Corpuscular Volume 88 fL (80-100); Monocytes # (Auto) 0.8 Thou/mm3 (0.0-0.8); Monocytes % (Auto) 13 % (0-12); Neutrophils # (Auto) 2.9 Thou/mm3 (1.8-7.7); Neutrophils % (Auto) 48 % (37-80); Nucleated Red Blood Cell % 0 /100 WBC (0); Platelet Count 208 Thou/mm3 (140-440); RDW Standard Deviation 48.2 fL (36.4-46.3); Red Blood Count 4.14 Miln/mm3 (4.00-5.20); White Blood Count 6.1 Thou/mm3 (3.6-11.0)
[2024-11-02 10:49] LABS: Alanine Aminotransferase 61 U/L (10-49); Albumin, Serum 4.1 gm/dL (3.4-4.8); Albumin/Globulin Ratio 1.8 (1.2-2.2); Alkaline Phosphatase 407 U/L (46-116); Anion Gap 9 (7-16); Aspartate Amino Transferase 72 U/L (0-34); BUN/Creatinine Ratio 20 Ratio (12-20); Bilirubin,Total 0.4 mg/dL (0.3-1.2); Blood Urea Nitrogen 12 mg/dL (9-23); Calcium 8.7 mg/dL (8.3-10.6); Calcium (Corrected) 8.7 mg/dL (8.5-10.1); Carbon Dioxide 25.1 mMol/L (20.0-31.0); Chloride 107 mMol/L (98-107); Creatinine (Component) 0.6 mg/dL (0.6-1.3); Globulin 2.3 gm/dL (2.3-3.5); Glucose 98 mg/dL (74-106); Osmolality,Calculated 280 (275-295); Potassium 4.1 mMol/L (3.4-5.1); Sodium 141 mMol/L (136-145); Total Protein 6.4 gm/dL (5.7-8.2); eGFR > 60 See Note
[2024-11-02 10:53] LABS: Carcinoembryonic Antigen 1.1 ng/mL (0.0-5.0)
--- NOTE | 2024-11-07 20:15 | CTCFLWUP_ITS ---
Patient: BRITTA JETER : 1960 Page 5 of 6 FOLLOW UP NOTE DATE OF SERVICE: 11/03/2024 NAME: BRITTA JETER ACCOUNT: [id number] : 1960 AGE: 64 INTERVAL HISTORY: Subjective: Chief Complaint Follow-up for intrahepatic bile duct carcinoma, anxiety about test results History of Present Illness Britta Jeter, a known patient with intrahepatic bile duct carcinoma and invasive adenocarcinoma of the ampulla of Vater, presents for follow-up. The patient reports feeling good overall but expresses anxiety about her condition and test results. Ms. Jeter underwent a Whipple Procedure following her diagnosis, with negative margins. She completed 6 months of adjuvant therapy with FOLFOX, receiving her first cycle in January 2024. The patient is concerned about her liver enzymes, which she reports are still high but trending down. She is ple ased to share that her cancer markers have decreased significantly, stating It went to zero. It's negative now. The patient denies any specific physical symptoms or complaints at this time. She mentions feeling anxious but is hopeful for positive news regarding her condition. Ms. Jeter expresses a desire for reassurance about her health status and is eager to share any good news with her daughter. Medications and Supplements - FOLFOX - Used for treatment of intrahepatic bile duct carcinoma - First cycle in January 2024 - Completed 6 months of treatment Review of Systems Psychiatric: Positive for anxiety. 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 She underwent a Whipple procedure with negative margins. Following surgery, she received 6 months of adjuvant therapy with FOLFOX, starting in January 2024. Initial post-surgery N a[place] testing was positive but has now turned negative. Recent CT scan was negative, while MRI was inconclusive due to motion artifact. Liver enzymes remain elevated but are trending downward. The patient reports feeling good overall. 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 12/30/2023 - 01/07/2024: Ms. Jeter was admitted to [facility] for obstructive jaundice. 726 patient had percutaneous transhepatic biliary drain. It further CT scan showed large duodenal/ampullary mass with peripancreatic lymphadenopathy. She was discharged home. She was readmitted to the hospital following day for seizure-like activity and was found to have hyponatremia. She eventually recovered. During the hospital stay Ms. Jeter was seen by Dr. Willson, hepatobiliary surgeon who felt she is unresectable at that time and recommended neoadjuvant chemotherapy. During the hospital stay she also had biliary stent placed. She received 1 cycle of modified FOLFOX chemotherapy on 01/18/2024. She was discharged home and referred to our clinic for further care. 01/03/2024: CT scan of the abdomen and pelvis with and without contrast 01/18/2024: Patient received 1 cycle of modified FOLFOX 6. 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 Vitamin D2 - 1,250 mcg (50,000 unit) 1 Capsule Weekly Medications Last Reconciled by Sarah Lopez MA on 11/03/2024 ALLERGIES: No Known Drug Allergies REVIEW OF SYSTEMS: A complete 14-point review of systems was performed and is negative except as noted in interval history. PHYSICAL EXAMINATION: VITAL SIGNS: Temperature?99, B/P?154/84, Oxygen?Saturation?98% Weight?157?lbs (Change?since?11/02/24:?-2.8?lbs) PAIN: 0 - No pain ECOG Performance Status: 0 - Asymptomatic and fully active GENERAL APPEARANCE: Appears well, in no apparent distress, appropriately interactive. HEENT: Normocephalic, no temporal wasting, normal conjunctiva, no scleral icterus, normal hearing, lips without lesions, neck normal range of motion. CARDIOVASCULAR: Not assessed. PULMONARY: Normal respiratory effort, no respiratory distress or use of accessory muscles, speaking in full sentences, no tachypnea. EXTREMITIES: No pedal edema or cyanosis. SKIN: Normal skin appearance. NEUROLOGIC: Alert and oriented x4. PSHYCHIATRIC: Appropriate affect, mood normal, behavior normal, intact thought and speech. LABORATORY DATA: I have personally reviewed and interpreted each of the patient?s relevant lab tests, abnormal findings are below: Date 10/04/24 11/02/24 ??WHITE?BLOOD?COUNT?(Thou/mm3) ? 6.1 ??RED?BLOOD?COUNT?(Miln/mm3) ? 4.14 ??HEMOGLOBIN?(gm/dl) ? 12.6 ??HEMATOCRIT?(%) ? 36.3 ??PLATELET?COUNT?(Thou/mm3) ? 208 ??NEUTROPHILS?%,?AUTO?(%) ? 48 ??LYMPH?%,?AUTO?(%) ? 36 ??NEUTROPHILS,?AUTO?(Thou/mm3) ? 2.9 ??GLUCOSE,RANDOM?(mg/dL) 110?H 98 ??BLOOD?UREA?NITROGEN?(mg/dL) 13 12 ??CREATININE?(mg/dL) 0.70 0.60 ??SODIUM?(mmol/L) 136 141 ??POTASSIUM?(mmol/L) 4.1 4.1 ??CHLORIDE?(mmol/L) 104 107 ??CrCl?(CandG)?(ml/min) 72.83 85.03 ??AST/SGOT?(Unit/L) 82?H 72?H ??ALT/SGPT?(Unit/L) 68?H 61?H ??ALKALINE?PHOSPHATASE?(Unit/L) 427?H 407?H ??BILIRUBIN,?TOTAL?(mg/dL) 0.4 0.4 ??PROTEIN?TOTAL?(gm/dl) 6.9 6.4 ??ALBUMIN,?SERUM?(gm/dl) 4.3 4.1 ??GLOBULIN?(gm/dl) 2.6 2.3 ??ALBUMIN/GLOBULIN?RATIO 1.7 1.8 ??CALCIUM,?SERUM?(mg/dL) 9.3 8.7 ??CALCIUM?SERUM?(CORRECTED)?(mg/dL) 9.3 8.7 ??CEA?(O*)?(ng/ml) ? 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 During surveillance, history and physical examination should take place, as should chest CT and CT or MRI of the abdomen and pelvis with contrast. CEA and/or CA 19-9 levels should also be measured. The NCCN-recommended option at the time of recurrence will be pancreatobiliary/mixed-type ampullary cancer include FOLFIRINOX/modified FOLFIRINOX (mFOLFIRINOX), gemcitabine + cisplatin, gemcitabine + capecitabine, and gemcitabine + albumin-bound paclitaxel. ORDERS: Order # Description [id number] CT Scan + With W/O Contrast + Chest + Abdomen and Pelvis [id number] Comprehensive Metabolic Panel - 12 + CBC with Auto Diff + CEA [id number] Follow Up 3 Months [id number] CA 19-9 RETURN TO CLINIC: 2 months BILLING AND COMPLIANCE: I reviewed external records from providers outside my specialty as summarized above. I spent a total of 50 minutes on this patient?s care on the day of their visit excluding time spent related to any billed procedures. This time includes time spent with the patient as well as time spent documenting in the medical record, reviewing patients records and tests, obtaining history, placing orders, communicating with other healthcare professionals, counseling the patient, family or caregiver, and/or care coordination for the diagnoses above. Electronically Signed by: {Object.Sanct_ID*PnP.NameFL@M}, {Object.Sanct_ID*PnP.Suffix@U} D: {Object.Sanct_Date} T: {Object.Sanct_Time} CC: Low?Radhames,? PCP: Srini Sr Referring: Srini Sr This document was completed utilizing speech recognition software. Grammatical errors, random word insertions, pronoun errors, and incomplete sentences are an occasional consequence of this system due to software limitations, ambient noise, and hardware issues. Any formal questions or concerns about the content, text or information contained within the body of this dictation should be directly addressed to the provider for clarification.
== END 2024-11-06 23:59 | disposition home or self-care (01) ==
LOC: SCTC 13:23
PROVIDERS: PCP Physician Assistant; Referring Provider Internal Medicine Hematology & Oncology; Visit Provider Internal Medicine Hematology & Oncology
DX: C22.1 Intrahepatic bile duct carcinoma (principal); C24.1 Malignant neoplasm of ampulla of Vater; F41.9 Anxiety disorder, unspecified; R74.01 Elevation of levels of liver transaminase levels
CPT/HCPCS: 36591; 80053; 82378; 85025; 99212; A4216; J1642; G0463

== ENCOUNTER → 2025-01-03 | Outpatient (CLI) | payer MEDICARE, SELFPAY ==
[2024-12-31 13:18] LABS: Basophils # (Auto) 0.1 Thou/mm3 (0.0-0.2); Basophils % (Auto) 1 % (0-2.5); Eosinophils # (Auto) 0.1 Thou/mm3 (0.0-0.5); Eosinophils % (Auto) 2 % (0-10); Hematocrit 45.7 % (36.0-46.0); Hemoglobin 15.2 g/dL (12.0-16.0); Immature Granulocytes Auto 0.02 Thou/mm3 (0.00-0.00); Lymphocytes # (Auto) 2.5 Thou/mm3 (1.0-4.8); Lymphocytes % (Auto) 38 % (10-50); Mean Corpuscular HGB Conc 33.3 g/dl (31.0-37.0); Mean Corpuscular Hemoglobin 29.9 pg (25.0-35.0); Mean Corpuscular Volume 90 fL (80-100); Monocytes # (Auto) 0.6 Thou/mm3 (0.0-0.8); Monocytes % (Auto) 9 % (0-12); Neutrophils # (Auto) 3.3 Thou/mm3 (1.8-7.7); Neutrophils % (Auto) 49 % (37-80); Nucleated Red Blood Cell # 0.00 Thou/mm3 (0.00-0.00); Nucleated Red Blood Cell % 0 /100 WBC (0); Platelet Count 258 Thou/mm3 (140-440); RDW Standard Deviation 41.9 fL (36.4-46.3); Red Blood Count 5.09 Miln/mm3 (4.00-5.20); White Blood Count 6.6 Thou/mm3 (3.6-11.0)
[2024-12-31 13:38] LABS: Alanine Aminotransferase 89 U/L (10-49); Albumin, Serum 4.6 gm/dL (3.4-4.8); Albumin/Globulin Ratio 1.6 (1.2-2.2); Alkaline Phosphatase 496 U/L (46-116); Anion Gap 10 (7-16); Aspartate Amino Transferase 90 U/L (0-34); BUN/Creatinine Ratio 18 Ratio (12-20); Bilirubin,Total 0.5 mg/dL (0.3-1.2); Blood Urea Nitrogen 14 mg/dL (9-23); Calcium 9.8 mg/dL (8.3-10.6); Calcium (Corrected) 9.8 mg/dL (8.5-10.1); Carbon Dioxide 27.4 mMol/L (20.0-31.0); Carcinoembryonic Antigen 0.8 ng/mL (0.0-5.0); Chloride 104 mMol/L (98-107); Creatinine (Component) 0.8 mg/dL (0.6-1.3); Globulin 2.8 gm/dL (2.3-3.5); Glucose 133 mg/dL (74-106); Osmolality,Calculated 283 (275-295); Potassium 4.5 mMol/L (3.4-5.1); Sodium 141 mMol/L (136-145); Total Protein 7.4 gm/dL (5.7-8.2); eGFR > 60 See Note
--- NOTE | 2025-01-03 10:00 | XR_ITS ---
Examination: CT chest with intravenous contrast CT abdomen with intravenous contrast CT pelvis with intravenous contrast CT chest without intravenous contrast CT abdomen without intravenous contrast CT pelvis without intravenous contrast 2-D coronal and sagittal reconstructions Time of exam: December 26, 2024 1019 hours Comparison MRCP August 25, 2024, CT chest abdomen pelvis August 13, 2024, MR abdomen August 12, 2024, PET/CT scan 02/26/2024 INDICATIONS: Diagnosis intrahepatic bile duct carcinoma CTDI: vol (mGy) : 16.3 DLP: (mGycm): 1052 Technique: Multiple axial images of the chest, abdomen and pelvis with intravenous contrast, 3.0 mm slice thickness. Images obtained post intravenous injection Isovue 370 60 cc. 2-D sagittal and coronal reconstructions. Low dose protocols were performed. One or more of the following dose reduction techniques were used; automated exposure control, adjustment of the mA and/or KV according to patient size, use of iterative reconstruction technique. Findings: No thoracic aortic aneurysm dilatation Pulmonary artery opacification is reduced No paratracheal tracheobronchial or bronchopulmonary adenopathy 2 mm comparing nodule posterior left upper lobe No pneumonia or pulmonary edema Pneumobilia No extrahepatic biliary tract dilatation No definite pancreatic mass on the current study Stable preaortic subcentimeter lymph nodes No interval pathologic lymphadenopathy 28 mm fat-containing umbilical hernia Normal appendix No bowel obstruction Anteverted uterus with mildly enlarged fundus Intact urinary bladder Severe osteopenia with advanced disc narrowing L4-L5 IMPRESSION: 2 mm pulmonary nodule posterior left upper lobe, recommend 6 month follow-up CT chest without contrast Pneumobilia No extrahepatic biliary tract dilatation, negative for hepatic metastases No pancreatic mass noted on this study. No interval pathologic lymphadenopathy. Normal appendix. No bowel obstruction
== END | disposition home or self-care (01) ==
LOC: SCTO 09:50
PROVIDERS: PCP Nurse Practitioner Family; Referring Provider Internal Medicine Hematology & Oncology; Visit Provider Internal Medicine Hematology & Oncology
DX: R91.1 Solitary pulmonary nodule (principal); C22.1 Intrahepatic bile duct carcinoma
CPT/HCPCS: 36415; 71270; 74178; 80053; 82378; 85025; A4649; Q9967

== ENCOUNTER → 2025-01-07 | Outpatient (CLI) | payer MEDICARE, SELFPAY ==
--- NOTE | 2025-01-07 11:00 | XR_ITS ---
Examination: Screening digital mammography, bilateral Computer aided detection 3-D breast Tomosynthesis, bilateral Date and time of exam: January 07, 2025 1103 hours Compared to mammograms dating to September 21, 2010 Indication: Screening Technique: Nonmagnified MLO, CC views of the breasts to been obtained, reconstructed from 3-D Tomosynthesis images. R2 computer aided detection program utilized for evaluation of suspicious masses and/or abnormal calcifications. 3-D Tomosynthesis images obtained. Findings: Scattered areas of fibroglandular density. Interval 3 circumscribed 2 to 3 mm nodules in the upper outer left breast Benign calcifications Impression: BI-RADS Category 0: Incomplete: Need additional imaging evaluation Recommend follow-up spot tomographic views upper outer quadrant left breast to assess small circumscribed nodules as well as left breast sonography to complete the workup
== END | disposition home or self-care (01) ==
LOC: CDIM 10:50
PROVIDERS: Referring Provider Nurse Practitioner Family; Visit Provider Nurse Practitioner Family
DX: Z12.31 Encounter for screening mammogram for malignant neoplasm of breast (principal); N63.21 Unspecified lump in the left breast, upper outer quadrant
CPT/HCPCS: 77063; 77067

== ENCOUNTER 2025-02-10 09:19 | Outpatient (RCR) | payer MEDICARE, SELFPAY ==
--- NOTE | 2025-02-09 12:57 | CTCFLWUP_ITS ---
Patient: BRITTA JETER : 1960 Page 2 of 2 FOLLOW UP NOTE DATE OF SERVICE: 02/09/2025 NAME: BRITTA JETER ACCOUNT: [id number] : 1960 AGE: 65 INTERVAL HISTORY: Subjective: Chief Complaint Follow-up for intrahepatic bile duct carcinoma, anxiety about test results. 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 The patient reports feeling good overall but expresses anxiety about her condition and test results. Ms. Jeter underwent a Whipple Procedure following her diagnosis, with negative margins. She completed 6 months of adjuvant therapy with FOLFOX, receiving her first cycle in January 2024. The patient is concerned about her liver enzymes, which she reports are still high but trending down. She is ple ased to share that her cancer markers have decreased significantly, stating It went to zero. It's negative now. Patient's CT DNA markers has been going up. Patient's last CT scan showed a 2 mm nodule in the lungs. Patient started crying once discussion was done regarding progression of cancer. Patient lives alone and her support system includes friends and daughter who lives in same city Medications and Supplements - FOLFOX - Used for treatment of intrahepatic bile duct carcinoma - First cycle in January 2024 - Completed 6 months of treatment Review of Systems Psychiatric: Positive for anxiety. Objective: Laboratory, Imaging, and Diagnostic Test Results - Liver enzymes: Elevated but trending down - [place] test: Negative (previously positive after surgery) - CT scan: Negative - MRI (August 2024): Inconclusive due to motion ONCOLOGY HISTORY: DIAGNOSIS: Intrahepatic bile duct carcinoma [ICD10] C22.1 DATE OF DIAGNOSIS: 12/30/2023 STAGE/TNM: Adenocarcinoma of pancreas TREATMENT HISTORY: Care?Plan Start?Date Cycle Day Intent mFOLFOX-6?-?5FU?400?+?2400?CIV,?LVR?400,OXALIplat?85 02/04/2024 1 14 Induction-Primary HISTORY OF PRESENT ILLNESS: Britta Jeter is a 65-year-old ENG speaking female with following oncology history. 12/30/2023 - 01/07/2024: Ms. Jeter was admitted to [facility] hospital for obstructive jaundice. 726 patient had percutaneous transhepatic biliary drain. It further CT scan showed large duodenal/ampullary mass with peripancreatic lymphadenopathy. She was discharged home. She was readmitted to the hospital following day for seizure-like activity and was found to have hyponatremia. She eventually recovered. During the hospital stay Ms. Jeter was seen by Dr. Willson, hepatobiliary surgeon who felt she is unresectable at that time and recommended neoadjuvant chemotherapy. During the hospital stay she also had biliary stent placed. She received 1 cycle of modified FOLFOX chemotherapy on 01/18/2024. She was discharged home and referred to our clinic for further care. 01/03/2024: CT scan of the abdomen and pelvis with and without contrast 01/18/2024: Patient received 1 cycle of modified FOLFOX 6. 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 None Medications Last Reconciled by Sarah Lopez MA on 02/09/2025 ALLERGIES: No Known Drug Allergies REVIEW OF SYSTEMS: A complete 14-point review of systems was performed and is negative except as noted in interval history. PHYSICAL EXAMINATION: VITAL SIGNS: Temperature?99, B/P?149/97, Oxygen?Saturation?95% Weight?166?lbs PAIN: 0 - No pain GENERAL APPEARANCE: Appears well, in no apparent distress, appropriately interactive. HEENT: Normocephalic, no temporal wasting, normal conjunctiva, no scleral icterus, normal hearing, lips without lesions, neck normal range of motion. CARDIOVASCULAR: Not assessed. PULMONARY: Normal respiratory effort, no respiratory distress or use of accessory muscles, speaking in full sentences, no tachypnea. EXTREMITIES: No pedal edema or cyanosis. SKIN: Normal skin appearance. NEUROLOGIC: Alert and oriented x4. PSHYCHIATRIC: Appropriate affect, mood normal, behavior normal, intact thought and speech. LABORATORY DATA: I have personally reviewed and interpreted each of the patient?s relevant lab tests, abnormal findings are below: Date 11/02/24 12/31/24 ??WHITE?BLOOD?COUNT?(Thou/mm3) ? 6.6 ??RED?BLOOD?COUNT?(Miln/mm3) ? 5.09 ??HEMOGLOBIN?(gm/dl) ? 15.2 ??HEMATOCRIT?(%) ? 45.7 ??PLATELET?COUNT?(Thou/mm3) ? 258 ??NEUTROPHILS?%,?AUTO?(%) ? 49 ??LYMPH?%,?AUTO?(%) ? 38 ??NEUTROPHILS,?AUTO?(Thou/mm3) ? 3.3 ??GLUCOSE,RANDOM?(mg/dL) 98 133?H ??BLOOD?UREA?NITROGEN?(mg/dL) 12 14 ??CREATININE?(mg/dL) 0.60 0.80 ??SODIUM?(mmol/L) 141 141 ??POTASSIUM?(mmol/L) 4.1 4.5 ??CHLORIDE?(mmol/L) 107 104 ??CrCl?(CandG)?(ml/min) 85.03 63.21 ??AST/SGOT?(Unit/L) 72?H 90?H ??ALT/SGPT?(Unit/L) 61?H 89?H ??ALKALINE?PHOSPHATASE?(Unit/L) 407?H 496?H ??BILIRUBIN,?TOTAL?(mg/dL) 0.4 0.5 ??PROTEIN?TOTAL?(gm/dl) 6.4 7.4 ??ALBUMIN,?SERUM?(gm/dl) 4.1 4.6 ??GLOBULIN?(gm/dl) 2.3 2.8 ??ALBUMIN/GLOBULIN?RATIO 1.8 1.6 ??CALCIUM,?SERUM?(mg/dL) 8.7 9.8 ??CALCIUM?SERUM?(CORRECTED)?(mg/dL) 8.7 9.8 ??CEA?(O*)?(ng/ml) ? 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 She underwent a Whipple procedure with negative margins. Following surgery, she received 6 months of adjuvant therapy with FOLFOX, starting in January 2024. Initial post-surgery N atera testing was positive but has now turned negative. Recent CT scan was negative, while MRI was inconclusive due to motion artifact. Liver enzymes remain elevated but are trending downward. Ms. Jeter reports feeling good overall. Patient likely have progression of cancer as CT DNA is rising Scan in January 04 showed only 2 mm nodule Patient wants to wait for progression of cancer Will get CT scan in March to evaluate lung nodules Will biopsy the nodules Will start on FOLFIRINOX Will evaluate her for radiation to the solitary nodules if no other cancer is found RTC with CT scan results Advised to get her port flushed The NCCN-recommended option at the time of recurrence will be pancreatobiliary/mixed-type ampullary cancer include FOLFIRINOX/modified FOLFIRINOX (mFOLFIRINOX), gemcitabine + cisplatin, gemcitabine + capecitabine, and gemcitabine + albumin-bound paclitaxel. ORDERS: Order # Description [id number] Follow Up 2 Months [id number] CA 19-9 [id number] [facility] Hereditary Cancer Test + [id number] bl test/ [facility] test:[id number] CT Scan + Chest + With W/O Contrast RETURN TO CLINIC: I reviewed the diagnosis, prognosis, and recommended treatment/procedure options with the patient (and/or their legal factory representative), including the potential benefits, risks, side effects and alternative therapies. We also discussed the option of no treatment and the possibility of clinical trial participation, if applicable. All questions were addressed, and they demonstrated understanding. They provided informed consent to proceed with the proposed plan of care. BILLING AND COMPLIANCE: I reviewed external records from providers outside my specialty as summarized above. I spent a total of 50 minutes on this patient?s care on the day of their visit excluding time spent related to any billed procedures. This time includes time spent with the patient as well as time spent documenting in the medical record, reviewing patients records and tests, obtaining history, placing orders, communicating with other healthcare professionals, counseling the patient, family or caregiver, and/or care coordination for the diagnoses above. Electronically Signed by: Srini Sr MD T: 12:55 PM CC: Low?Radhames? PCP: Antonella Callejas Referring: Antonella Callejas This document was completed utilizing speech recognition software. Grammatical errors, random word insertions, pronoun errors, and incomplete sentences are an occasional consequence of this system due to software limitations, ambient noise, and hardware issues. Any formal questions or concerns about the content, text or information contained within the body of this dictation should be directly addressed to the provider for clarification.
== END 2025-03-08 23:59 | disposition home or self-care (01) ==
LOC: SCTC 09:19
PROVIDERS: PCP Nurse Practitioner Family; Referring Provider Nurse Practitioner Family; Visit Provider Internal Medicine Hematology & Oncology
DX: C22.1 Intrahepatic bile duct carcinoma (principal); Z92.3 Personal history of irradiation; Z45.2 Encounter for adjustment and management of vascular access device
CPT/HCPCS: 96523; 99212; A4216; J1642; G0463

== ENCOUNTER → 2025-05-18 | Outpatient (CLI) | payer MEDICARE, SELFPAY ==
--- NOTE | 2025-05-18 11:00 | XR_ITS ---
Examination: CT chest with intravenous contrast CT chest without intravenous contrast 2-D reconstructions Date and time of exam: May 18, 2025, 1203 hours, comparison January 03, 2025 INDICATIONS: Diagnosis intrahepatic bile duct carcinoma, 2 mm pulmonary nodule posterior left upper lobe on CT chest January 03, 2025 CTDI:vol (mGy) 13.1 DLP: (mGycm) 1042 Technique: Multiple axial sections of the thorax have been obtained. 3 mm slice thickness, from the hemidiaphragms to above the apices of the lungs. Mediastinal and lung density settings have been obtained. Intravenous contrast administered 60 cc Isovue 370. Noncontrast images have also been obtained. 2-D sagittal coronal images obtained. Low dose protocols were performed. One or more of the following dose reduction techniques were used; automated exposure control, adjustment of the mA and/or KV according to patient size, use of iterative reconstruction technique. Findings: 16 mm right thyroid nodule No thoracic aortic aneurysm dilatation or dissection No pulmonary artery filling defects No mediastinal lymphadenopathy On the current study there are at least 20 new pulmonary nodules ranging in size from 2 to 8 mm No interval pneumonia or pulmonary edema Trace pericardial thickening 19 mm solid lesion posterior right lobe of the liver in the midportion 19 mm solid lesion inferior right lobe of the liver No splenic mass No pancreatic mass on this study Minimal nodular thickening left adrenal gland No hydronephrosis Prominent osteopenia IMPRESSION: 16 mm right thyroid nodule Interval pulmonary nodular metastatic disease, at least 20 new pulmonary nodules ranging in size from 2 to 8 mm compared to the CT chest January 03, 2025 2 solid liver lesions, recommend MRI abdomen pre and post contrast follow-up to compare with the August 12, 2024 exam
== END | disposition home or self-care (01) ==
PROVIDERS: PCP Nurse Practitioner Family; Referring Provider Internal Medicine Hematology & Oncology; Visit Provider Internal Medicine Hematology & Oncology
DX: C78.00 Secondary malignant neoplasm of unspecified lung (principal); C22.1 Intrahepatic bile duct carcinoma; E04.1 Nontoxic single thyroid nodule; K76.89 Other specified diseases of liver
CPT/HCPCS: 71270; A4649; Q9967

== ENCOUNTER 2025-05-24 15:41 | Outpatient (RCR) | payer MEDICARE, SELFPAY ==
--- NOTE | 2025-06-13 03:36 | CTCFLWUP_ITS ---
Patient: BRITTA JETER : 1960 Page 3 of 7 FOLLOW UP NOTE DATE OF SERVICE: 05/24/2025 NAME: BRITTA JETER ACCOUNT: [id number] : 1960 AGE: 65 INTERVAL HISTORY: Patient is 65-year-old woman here for follow-up. Patient received her last chemotherapy in September 2024. Patient is here to review her imaging results. In the last scans patient had recurrence of the tumor as shown on imaging in 8 Neti results patient wanted to wait for the repeat imaging. Patient is here to review the results today. ONCOLOGY HISTORY:?[facility] Hx? 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 12/30/2023 - 01/07/2024: Ms. Jeter was admitted to [facility] hospital for obstructive jaundice. 726 patient had percutaneous transhepatic biliary drain. It further CT scan showed large duodenal/ampullary mass with peripancreatic lymphadenopathy. She was discharged home. She was readmitted to the hospital following day for seizure-like activity and was found to have hyponatremia. She eventually recovered. During the hospital stay Ms. Jeter was seen by Dr. Willson, hepatobiliary surgeon who felt she is unresectable at that time and recommended neoadjuvant chemotherapy. During the hospital stay she also had biliary stent placed. She received 1 cycle of modified FOLFOX chemotherapy on 01/18/2024. She was discharged home and referred to our clinic for further care. 01/03/2024: CT scan of the abdomen and pelvis with and without contrast 01/18/2024: Patient received 1 cycle of modified FOLFOX 6. 05/18/2025 CT scan shows multiple lesions at least 20 new nodules in the lungs as well as 2 big lesions in the liver at least 9 mm solid region in the right lobe of the liver in the midportion and also in the inferior right lobe of the liver Biopsy on the lesion is ordered PAST MEDICAL HISTORY: Invasive adenocarcinoma ampulla of Vater - dx 12/31/23 Seizures OTHER MEDICAL HISTORY/CONDITIONS: Invasive adenocarcinoma ampulla of Vater - dx 12/31/23 Seizures ?-?1988 FAMILY HISTORY: Father:?Colon-?dx?60 Mother:?Breast?-dx??60's Sibling: Brother - Non-Hodgkins- dx 50's Cancer History:?Mat Grandmother - Ovarian- dx 60's SOCIAL HISTORY: 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 Keppra - 100 mg/mL 1 Twice a Day 2. Lexapro - 10 mg 1 tab Daily?Palabra Meds? Medications Last Reconciled by Sarah Pearson MD on 05/24/2025 ALLERGIES: No Known Drug Allergies REVIEW OF SYSTEMS: A complete 14-point review of systems was performed and is negative except as noted in interval history. PHYSICAL EXAMINATION:?CloneBlock PE? VITAL SIGNS: Temperature?97.9, B/P?127/73, Oxygen?Saturation?98% Weight?165?lbs PAIN: 0 - No pain ECOG Performance Status: 0 - Asymptomatic and fully active GENERAL APPEARANCE: Appears well, in no apparent distress, appropriately interactive. HEENT: Normocephalic, no temporal wasting, normal conjunctiva, no scleral icterus, normal hearing, lips without lesions, neck normal range of motion. CARDIOVASCULAR: Not assessed. PULMONARY: Normal respiratory effort, no respiratory distress or use of accessory muscles, speaking in full sentences, no tachypnea. EXTREMITIES: No pedal edema or cyanosis. SKIN: Normal skin appearance. NEUROLOGIC: Alert and oriented x4. PSHYCHIATRIC: Appropriate affect, mood normal, behavior normal, intact thought and speech. LABORATORY DATA: I have personally reviewed and interpreted each of the patient?s relevant lab tests, abnormal findings are below: Date 11/02/24 12/31/24 ??WHITE?BLOOD?COUNT?(Thou/mm3) ? 6.6 ??RED?BLOOD?COUNT?(Miln/mm3) ? 5.09 ??HEMOGLOBIN?(gm/dl) ? 15.2 ??HEMATOCRIT?(%) ? 45.7 ??PLATELET?COUNT?(Thou/mm3) ? 258 ??NEUTROPHILS?%,?AUTO?(%) ? 49 ??LYMPH?%,?AUTO?(%) ? 38 ??NEUTROPHILS,?AUTO?(Thou/mm3) ? 3.3 ??GLUCOSE,RANDOM?(mg/dL) 98 133?H ??BLOOD?UREA?NITROGEN?(mg/dL) 12 14 ??CREATININE?(mg/dL) 0.60 0.80 ??SODIUM?(mmol/L) 141 141 ??POTASSIUM?(mmol/L) 4.1 4.5 ??CHLORIDE?(mmol/L) 107 104 ??CrCl?(CandG)?(ml/min) 85.03 63.21 ??AST/SGOT?(Unit/L) 72?H 90?H ??ALT/SGPT?(Unit/L) 61?H 89?H ??ALKALINE?PHOSPHATASE?(Unit/L) 407?H 496?H ??BILIRUBIN,?TOTAL?(mg/dL) 0.4 0.5 ??PROTEIN?TOTAL?(gm/dl) 6.4 7.4 ??ALBUMIN,?SERUM?(gm/dl) 4.1 4.6 ??GLOBULIN?(gm/dl) 2.3 2.8 ??ALBUMIN/GLOBULIN?RATIO 1.8 1.6 ??CALCIUM,?SERUM?(mg/dL) 8.7 9.8 ??CALCIUM?SERUM?(CORRECTED)?(mg/dL) 8.7 9.8 ??CEA?(O*)?(ng/ml) ? 0.8 ASSESSMENT/PLAN:?Arcadio Sr Assessment/Plan? 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 Following surgery, she received 6 months of adjuvant therapy with FOLFOX, starting in January 2024. Initial post-surgery [place] testing was positive but has now turned negative. 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 She now pre sents with disease progression, with CT scan from May 18, 2025 demonstrating at least 20 new pulmonary nodules (2-8 mm) and 1 solid liver lesion (19 mm), consistent with metastatic disease. Molecular profiling revealed MAP2K1 mutation. Patient has insurance approval for FOLFOX rechallenge. Plan: Initiate FOLFOX chemotherapy?as first-line treatment for metastatic disease. FOLFOX is a preferred regimen per NCCN guidelines for subsequent-line therapy in biliary tract cancers and is listed as an other recommended regimen for first-line treatment of metastatic ampullary adenocarcinoma (pancreatobiliary type).[1-2]?Given the >10-month treatment-free interval since completion of adjuvant FOLFOX (July 2024 to May 2025), rechallenge with FOLFOX is appropriate and guideline-supported. The ABC-06 trial demonstrated that FOLFOX significantly improved overall survival compared to active symptom control alone in advanced biliary tract cancer (median OS 6.2 months vs 5.3 months, HR 0.69, p=0.031), with 6-month and 12-month OS rates of 50.6% and 25.9% respectively.[3] Concurrent comprehensive molecular profiling?to identify additional actionable alterations beyond MAP2K1, including FGFR2 fusions, IDH1 mutations, BRAF V600E, HER2 amplification, NTRK fusions, RET fusions, KRAS G12C, MSI-H/dMMR, and TMB- H.[1]?While MAP2K1 mutations are not currently matched to FDA-approved therapies in NCCN guidelines for biliary tract or ampullary cancers, comprehensive profiling may identify other targetable alterations that could guide future treatment decisions.[4-5] Consider clinical trial enrollment?for [id number] therapy. The ongoing ComboMATCH trial ([id number]-R0, [id number]) is evaluating FOLFOX plus binimetinib versus FOLFOX alone in patients with advanced biliary tract cancers harboring MAPK pathway alterations, including MAP2K1 mutations.[6]?This represents a potential future treatment option if FOLFOX alone proves insufficient. Early clinical studies suggest safety and tolerability of MEK inhibitors combined with fluoropyrimidine-based chemotherapy, with preclinical data showing synergy through downregulation of thymidylate synthase levels.[6-7] Biopsy of accessible lesion?(preferably liver lesion) to confirm metastatic disease and obtain tissue for comprehensive molecular profiling if not already completed. This will also help determine if both primary malignancies have recurred or if one is predominant. Port flush?as advised. Follow-up:?Restaging scans after 2-3 cycles of FOLFOX to assess response. If disease progression occurs on FOLFOX, consider FOLFIRI, liposomal irinotecan plus 5-FU/leucovorin, or enrollment in clinical trials targeting MAP2K1 or other identified molecular alterations.[1][8] The NCCN-recommended option at the time of recurrence will be pancreatobiliary/mixed-type ampullary cancer include FOLFIRINOX/modified FOLFIRINOX (mFOLFIRINOX), gemcitabine + cisplatin, gemcitabine + capecitabine, and gemcitabine + albumin-bound paclitaxel. ORDERS: Order # Description [id number] Comprehensive Metabolic Panel + CBC with Auto Diff + CEA + Urinalysis, Automated with Microscopy [id number] Follow Up Appointment [id number] Infusion 6 Hours [id number] Discontinue CIV Pump [id number] Comprehensive Metabolic Panel + CBC with Auto Diff + CEA + Urinalysis, Automated with Microscopy [id number] Follow Up Appointment [id number] Infusion 6 Hours [id number] Discontinue CIV Pump [id number] Comprehensive Metabolic Panel + CBC with Auto Diff + CEA + Urinalysis, Automated with Microscopy [id number] Follow Up Appointment [id number] Infusion 6 Hours [id number] Discontinue CIV Pump [id number] Comprehensive Metabolic Panel + CBC with Auto Diff + CEA + Urinalysis, Automated with Microscopy [id number] Follow Up Appointment [id number] Infusion 6 Hours [id number] Discontinue CIV Pump [id number] Comprehensive Metabolic Panel + CBC with Auto Diff + CEA + Urinalysis, Automated with Microscopy [id number] Follow Up Appointment [id number] Infusion 6 Hours [id number] Discontinue CIV Pump [id number] Comprehensive Metabolic Panel + CBC with Auto Diff + CEA + Urinalysis, Automated with Microscopy [id number] Follow Up Appointment [id number] Infusion 6 Hours [id number] Discontinue CIV Pump [id number] Comprehensive Metabolic Panel + CBC with Auto Diff + CEA + Urinalysis, Automated with Microscopy [id number] Follow Up Appointment [id number] Infusion 6 Hours [id number] Discontinue CIV Pump [id number] Comprehensive Metabolic Panel + CBC with Auto Diff + CEA + Urinalysis, Automated with Microscopy [id number] Follow Up Appointment [id number] Infusion 6 Hours [id number] Discontinue CIV Pump [id number] Comprehensive Metabolic Panel + CBC with Auto Diff + CEA + Urinalysis, Automated with Microscopy [id number] Follow Up Appointment [id number] Infusion 6 Hours [id number] Discontinue CIV Pump [id number] Comprehensive Metabolic Panel + CBC with Auto Diff + CEA + Urinalysis, Automated with Microscopy [id number] Follow Up Appointment [id number] Infusion 6 Hours [id number] Discontinue CIV Pump [id number] Comprehensive Metabolic Panel + CBC with Auto Diff + CEA + Urinalysis, Automated with Microscopy [id number] Follow Up Appointment RETURN TO CLINIC: I reviewed the diagnosis, prognosis, and recommended treatment/procedure options with the patient (and/or their legal nutrition representative), including the potential benefits, risks, side effects and alternative therapies. We also discussed the option of no treatment and the possibility of clinical trial participation, if applicable. All questions were addressed, and they demonstrated understanding. They provided informed consent to proceed with the proposed plan of care. BILLING AND COMPLIANCE: I reviewed external records from providers outside my specialty as summarized above. I spent a total of 50 minutes on this patient?s care on the day of their visit excluding time spent related to any billed procedures. This time includes time spent with the patient as well as time spent documenting in the medical record, reviewing patients records and tests, obtaining history, placing orders, communicating with other healthcare professionals, counseling the patient, family or caregiver, and/or care coordination for the diagnoses above. Electronically Signed by: Srini Sr MD T: 3:33 AM CC: Low?Radhames,? PCP: Antonella Callejas Referring: Antonella Callejas This document was completed utilizing speech recognition software. Grammatical errors, random word insertions, pronoun errors, and incomplete sentences are an occasional consequence of this system due to software limitations, ambient noise, and hardware issues. Any formal questions or concerns about the content, text or information contained within the body of this dictation should be directly addressed to the provider for clarification.
== END 2025-06-08 23:59 | disposition home or self-care (01) ==
LOC: SCTC 15:41
PROVIDERS: PCP Nurse Practitioner Family; Referring Provider Nurse Practitioner Family; Visit Provider Internal Medicine Hematology & Oncology
DX: C22.1 Intrahepatic bile duct carcinoma (principal)
CPT/HCPCS: 99212; G0463

== ENCOUNTER → 2025-06-01 | Outpatient (CLI) | payer MEDICARE, SELFPAY ==
--- NOTE | 2025-06-01 10:15 | XR_ITS ---
Examination: MRI of brain without intravenous contrast. MRI brain with intravenous contrast. Date and time of exam: June 01, 2025, 1119 hours, seizure history, seizure episode last night Technique: Multiple axial and sagittal images of the brain to been obtained. Siemens high-resolution 1.52 Estefanía short bore scanner utilized. Sagittal sections, T1 weighted images, TR 500, TE 14, are performed. Axial sections proton-density and T2-weighted images have been obtained. Inversion recovery axial images, TR 9260, TE 111, TR 2500. Diffusion weighted images, axial sections, TR 4800, TE 128, B value 1000. Axial sections, ADC map, TR 4800, TE 128. Axial and coronal images were also obtained post 15 cc gadolinium administered intravenously. Findings:: Enlargement of the sella turcica is not present. The optic chiasm and infundibular stalk are not remarkable. There is no localized enlargement of the medulla or mariela. Fourth ventricle and cerebellar tonsils appear normal in position. No subacute area of hemorrhage density is seen. Fourth ventricle is midline. Mass in the cerebellopontine angle region is not evident. 7th and 8th nerve complexes exhibit symmetry Globes are symmetrical Orbital musculature including medial lateral rectus muscles do not exhibit abnormality Increased white matter signal is moderate Effacement of the cortical sulcal markings is not identified. Mass effect upon the ventricular system is not identified. Diffusion-weighted images demonstrate no focus of restricted diffusion Contrast images demonstrate no abnormal contrast enhancement Impression: Negative for acute hemorrhage mass effect or midline shift No acute infarct Moderate chronic microvascular white matter change No abnormal enhancing cerebellar or cerebral lesions
== END | disposition home or self-care (01) ==
PROVIDERS: PCP Internal Medicine; Referring Provider Psychiatry & Neurology Neurology; Visit Provider Psychiatry & Neurology Neurology
DX: R90.82 White matter disease, unspecified (principal)
CPT/HCPCS: 70553; A9577